=== PATIENT | male | born 1950 | race Caucasian/White ===

== ENCOUNTER 2018-12-18 11:03 | Emergency (ER) | payer BC ==
[2018-12-18 13:19] VITALS: BP 153/87
--- NOTE | 2018-12-18 13:43 | UC ---
Respiratory Complaint HPI - HPI Summary HPI Summary: Patient complaining of SOB on exertion that is now even at rest. cough, and sinus congestion for the past week or 2 - History of Current Complaint Chief Complaint: UCRespiratory Stated Complaint: COUGH,CONGESTON Time Seen by Provider: 12/18/18 13:03 Hx Obtained From: Patient Onset/Duration: Sudden Onset, Lasting Weeks - 1-2 Timing: Constant Severity Initially: Mild Severity Currently: Moderate Pain Intensity: 0 Character: Cough: Productive Aggravating Factors: Exertion, Deep Breaths, Recumbent Position Alleviating Factors: Nothing Associated Signs And Symptoms: Positive: Dyspnea, URI, Nasal Congestion, Sinus Discomfort - Allergies/Home Medications Allergies/Adverse Reactions: Allergies Allergy/AdvReac Type Severity Reaction Status Date / Time No Known Allergies Allergy Verified 12/18/18 13:09 Home Medications: Home Medications Levothyroxine TAB* [Synthroid TAB*] 75 mcg PO DAILY 12/18/18 [History Confirmed 12/18/18] PMH/Surg Hx/FS Hx/Imm Hx Previously Healthy: Yes - Surgical History Surgical History: Yes Surgery Procedure, Year, and Place: Rectal cancer surgery, Appendectomy, b/l toe surgeries 2011 - Family History Known Family History: Positive: Cardiac Disease - brother , hx of bypass for CAD, age 63 - Social History Occupation: Employed Full-time Alcohol Use: Occasionally Substance Use Type: None Smoking Status (MU): Former Smoker Type: Cigarettes Amount Used/How Often: 1 PPD Length of Time of Smoking/Using Tobacco: 4 Years Have You Smoked in the Last Year: No When Did the Patient Quit Smoking/Using Tobacco: ~1979 - Immunization History Most Recent Influenza Vaccination: July 2015 Review of Systems All Other Systems Reviewed And Are Negative: Yes Constitutional: Positive: Negative Skin: Positive: Negative Eyes: Positive: Negative ENT: Positive: Sore Throat, Nasal Discharge, Sinus Congestion Respiratory: Positive: Shortness Of Breath, Cough Cardiovascular: Positive: Negative Gastrointestinal: Positive: Negative Genitourinary: Positive: Negative Motor: Positive: Negative Neurovascular: Positive: Negative Musculoskeletal: Positive: Negative Neurological: Positive: Negative Psychological: Positive: Negative Is Patient Immunocompromised?: No Physical Exam Triage Information Reviewed: Yes Appearance: Well-Nourished, Ill-Appearing, Pain Distress Vital Signs: Initial Vital Signs Temp 97.7 F 12/18/18 13:12 Pulse 81 12/18/18 13:12 Resp 20 12/18/18 13:12 BP 153/87 12/18/18 13:12 Pulse Ox 95 12/18/18 13:12 Vital Signs Reviewed: Yes Eye Exam: Normal ENT: Positive: Pharyngeal erythema - with PND, Nasal drainage, Sinus tenderness Dental Exam: Normal Neck exam: Normal Neck: Positive: Supple, Nontender, No Lymphadenopathy Respiratory: Positive: Chest non-tender, No accessory muscle use, Respiratory distress - mild, Expiration, Inspiration Cardiovascular Exam: Normal Cardiovascular: Positive: RRR, No Murmur, Pulses Normal Abdominal Exam: Normal Abdomen Description: Positive: Nontender, No Organomegaly, Soft Bowel Sounds: Positive: Present Musculoskeletal Exam: Normal Neurological Exam: Normal Psychological Exam: Normal Skin Exam: Normal Respiratory Course/Dx - Course Course Of Treatment: hx obtained, exam performed, meds reviewed, treated for bronchitis and sinusitis - Differential Dx/Diagnosis Differential Diagnosis/HQI/PQRI: Asthma, Bronchitis, Influenza, Laryngitis, Sinusitis Provider Diagnosis: Acute bronchitis, Sinusitis Discharge - Sign-Out/Discharge Documenting (check all that apply): Patient Departure All imaging exams completed and their final reports reviewed: No Studies - Discharge Plan Condition: Stable Disposition: HOME Prescriptions: Albuterol HFA INHALER* [Ventolin HFA Inhaler*] 2 puff INH Q4H PRN #1 mdi PRN Reason: Sob/Wheezing Azithromycin TAB* [Zithromax TAB (Z-MARICRUZ) 250 mg #6 tabs] 2 tab PO .TODAY, THEN 1 DAILY #1 maricruz predniSONE [Prednisone 20 MG TAB] 40 mg PO DAILY #14 tablet Patient Education Materials: Acute Bronchitis (ED) Referrals: Ludwig Roper DO [Primary Care Provider] - Additional Instructions: 1. take the medication as prescribed. 2. Salt water gargles multiple times a day 3. Get some rest and increase fluids 4. Follow up as needed. - Billing Disposition and Condition Condition: STABLE Disposition: Home
== END 2018-12-18 13:52 | disposition home or self-care (01) ==
LOC: UCCORT 11:03
DX: J20.9 Acute bronchitis, unspecified (principal); J32.9 Chronic sinusitis, unspecified; Z87.891 Personal history of nicotine dependence
CPT/HCPCS: 99212; G0463

== ENCOUNTER 2019-07-08 07:53 | Emergency (ER) | payer BC ==
--- OUTSIDE RECORDS SUMMARY | 2019-07-08 08:03 | XMS REPORT | Continuity of Care Document ---
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 Unknown ETOH Use Occasionally consumes beer Recreational Drug Use Denies Drug Use Allergies, Adverse Reactions, Alerts Description No Known Drug Allergies Medications Active Medications SIG Qnty Indications Ordering Provider Date Lisinopril 1 by mouth 90tabs Ludwig Roper, 10/26/2018 20mg Tablets every day DO Levothyroxine Sodium Take 1 Tablet 90tabs E03.9 Ludwig Roper, 10/29/2017 75mcg Daily DO Tablets Vitamin B-6 1 by mouth Unknown Tablets every day Vitamin B12 1 by mouth Unknown Tablets every day Vitamin C 1 by mouth Unknown 500mg Tablets every day Immunizations CPT Code Status Date Vaccine Reaction Lot # [id number] Given 11/04/2018 Pneumococcal 23 Immunization [id number] Adult Or Immunosuppressed Patient 46376 Given 11/04/2018 Tdap (Boostrix)tetanus, [id number] diptheria toxoid & acellular pertussis Q2039 Given 07/27/2018 Flu Vaccine NOS GIVEN AT PHARMACY Q2039 Given 08/17/2017 Flu Vaccine NOS 07687 Given 04/14/2017 Prevnar 13 Pneumococal Pt tolerated well [id number] Conjugate Vaccine Q2035 Given 08/27/2016 Afluria Imunization Given At Pharmacy [facility] Q2037 Given 08/16/2015 Fluvirin Immunization [facility] 98377 Given 07/25/2013 Afluria Or Fluvirin Flu Vac [facility] Intramuscular 33509 Given 04/03/2013 Zoster (Zostavax) 40379 Refused 11/04/2018 Shingrix (Shingles) Zoster Vaccine will get at pharmacy HZV, Recombinant, Subunit, Adj Vital Signs Date Vital Result Comment 05/31/2019 2:50pm Body Temperature 99.4 F Weight 281.00 lb Heart Rate 98 /min BP Systolic 128 mmHg BP Diastolic 70 mmHg Respiratory Rate 18 /min Height 74.75 inches 6'2.75" O2 % BldC Oximetry 92 % BMI (Body Mass Index) 35.4 kg/m2 11/04/2018 10:04am Weight 287.00 lb Heart Rate 70 /min BP Systolic 128 mmHg BP Diastolic 80 mmHg Respiratory Rate 18 /min Height 74.75 inches 6'2.75" (10/2016) O2 % BldC Oximetry 95 % ra BMI (Body Mass Index) 36.1 kg/m2 Results Test Date Facility Test Result H/L Range Note Basic (BMP) 04/28/2019 [facility] Sodium 139 mmol/L 135-146 1 Potassium 4.8 mmol/L 3.5-5.2 Chloride# 104 mmol/L 97-110 2 Carbon Dioxide 23 mmol/L Low 24-34 Glucose 103 mg/dL 70-105 BUN 15 mg/dL 6-26 Creatinine 1.0 mg/dL 0.5-1.4 Calcium 9.5 mg/dL 8.5-10.5 3 Female Egfr 58 Low >60 4 Male Egfr 78 >60 5 Anion Gap 12 mmol/L 5-15 6 CBC with Auto Diff-fcmg 04/28/2019 [facility] WBC 5.1 K/uL 4.1-11.0 RBC 4.76 M/uL 4.60-6.10 Hemoglobin 15.3 gm/dL 13.5-18.0 Hematocrit 44.9 % 41.0-53.0 MCV 94.3 fL 80.0-97.0 MCH 32.1 pg High 27.0-32.0 MCHC 34.1 g/dL 32.0-36.0 RDW 12.8 % 11.5-14.5 PLT Count 263 K/ul 140-400 MPV 8.1 FL 7.1-10.7 Neutrophil 54.1 % 35.0-75.0 Lymphocyte 23.3 % 16.0-52.0 Monocyte 13.7 % High 2.0-10.0 Eosinophil 7.6 % High 0.0-5.0 Basophil 1.3 % 0.0-4.0 Abs Neutrophils 2.8 K/uL 2.1-8.0 Abs Lymphocytes 1.2 K/uL 0.8-5.5 Abs Monocytes 0.7 K/uL 0.1-1.0 Abs Eosinophils 0.4 K/uL 0.0-0.5 Abs Basophils 0.1 K/uL 0.0-0.3 Laboratory test finding 04/28/2019 [facility] TSH 2.21 uIU/mL 0.35-4.94 Lipid Treatment 04/28/2019 [facility] Cholesterol 135 mg/dL 50-199 Triglycerides 68 mg/dL 30-200 HDL 35 mg/dL 29-71 7 Chol/ HDL Ratio 3.9 ratio Low 4.0-6.7 VLDL 14 mg/dL 2-29 LDL (Calc) 87 mg/dL 20-99 8 Alt 46 U/L High 3-42 Ast 30 U/L 8-42 1 Updated reference range on new analyzer 2 Updated reference range on new analyzer 3 Updated reference range 02-08-2019 4 Concerning GFR Guidelines for Americans: Normal function or mild renal disease, if clinically at risk: >/= 60 mL/min Moderately decreased: 30-59 Severely decreased: 15-29 Renal failure: <15 There is reduced accuracy above 60ml/min/1.73 m squared, but the numeric value may be clinically useful in the near 60 range 5 Concerning GFR Guidelines: Normal function or mild renal disease, if clinically at risk: >/= 60 mL/min Moderately decreased: 30-59 Severely decreased: 15-29 Renal failure: <15 There is reduced accuracy above 60ml/min/1.73 m squared, but the numeric value may be clinically useful in the near 60 range Glomerular Filtration Rate (GFR) is estimated based on the CKD-EPI equation, which assumes a steady state for creatinine as recommended by the National Kidney Disease Education Program in conjunction with the National Institutes of Health and the National Kidney Foundation. Clinical conditions in which it may be necessary to measure GFR by using clearance methods include extremes of age and body size, severe malnutrition or obesity, diseases of skeletal muscle, paraplegia or quadriplegia, vegetarian diet, rapidly changing kidney function, and calculation of the dose of potentially toxic drugs that are excreted by the kidneys. 6 Updated Reference Range -2017 7 Per NCEP ATP III Guidelines: Results lower than 40 mg/dL are suggestive of increased risk for coronary artery disease. Results > or = to 60 mg/dL are considered a negative risk factor. 8 Per NCEP ATP III Guidelines: Normal Population <130 Patients with medical conditions: CHD/DM Optimal: <100 Borderline high: 130-159 High: 160-189 Very high: >189 Procedures Date Code Description Status 06/06/2018 09881699 Colonoscopy Completed 06/03/2015 75128269 Colonoscopy Completed Medical Devices Description No Information Available Encounters Description No Information Available Assessments Date Code Description Provider 05/31/2019 I10 Essential (primary) hypertension Ludwig Roper DO 05/31/2019 E03.9 Hypothyroidism, unspecified Ludwig Roper DO 05/31/2019 D01.2 Carcinoma in situ of rectum Ludwig Roper DO 05/31/2019 E66.9 Obesity, unspecified Ludwig Roper DO 05/31/2019 R53.83 Other fatigue Ludwig Roper DO 05/31/2019 R05 Cough Ludwig Roper DO 05/31/2019 Z68.35 Body mass index (BMI) 35.0-35.9, adult Ludwig Roper DO 04/28/2019 I10 Essential (primary) hypertension Ludwig Roper DO 04/28/2019 I10 Essential (primary) hypertension Schedule, Laboratory 04/28/2019 I10 Ess[facility] of Treatment Future Appointment(s):11/24/2019 9:55 am - Schedule, Laboratory at [facility]2019 1:00 pm - Ludwig Roper DO at [facility]05/31/2019 - Ludwig Roper DOI10 Essential (primary) hypertensionNew Labs:Basic (BMP), Scheduled: 11/24/19CBC with Auto Diff-fcmg, Scheduled: 11/24/19TSH, Scheduled: 11/24/19Lipid Treatment , Scheduled: 11/24/19Comments:Today, the patient's BP is at 128/70-The patient was advised to continue with current line of therapies which include Lisinopril 20 mg.-The patient will benefit from maintaining a low sodium diet.-The patient was encouraged to monitor his BP periodically at home and maintain a log of the same to bringalong during his next visit for comparison.-The patient was advised to participate in activities that lower blood pressure and cardiac load. We will continue to monitor.Follow up:Schedule an x-ray today. Blood work in 6 months and will follow up with me a couple of days later.E03.9 Hypothyroidism, jufgzahdyldO93.2 Carcinoma in situ of xluorcS41.9 Obesity, unspecifiedComments:The patient had lost around 6lbs of body weight since the previous visit and he currently weighs around 281lbs. A detailed discussion was had with the patient regarding his body weight and BMI. He was made aware about the health hazards of obesity including diabetes, hypertension, cardiac diseases, and other various risk factors. He was advised to maintain a healthy and low-calorie diet and a regular exercise regimen which will help him lose weight.R53.83 Other fatigueComments:May be secondary to his URI symptoms and sleeping difficulty. Discussed different treatment options.1. We will obtain x- rays for further management of the symptoms.2. We will await for the x-rays results and would send in antibiotics after reviewing the x-ray results.3. Advised the patient to call orcome back to the clinic if the symptoms continue to persist or worsen.R05 CoughNew Xrays:Chest Xray, 2 Views, Ordered: Comments:Reviewed the condition with the patient. Discussed different treatment options.1. We will obtain x-rays for further management of the symptoms.2. We will await for the x-rays results and would send inantibiotics after reviewing the x-ray results.3. Advised the patient to call or come back to the clinic if the symptoms continue to persist or worsen.Z68.35 Body mass index (BMI) 35.0-35.9, adultComments:The patient's BMI is at 35.4. The patient was strongly encouraged to lose weight with low-calorie diet and exercises. We will continue to monitor his weight and BMI periodically. Functional Status Description No Information Available Mental Status Description No Information Available Referrals Description No Information Available
--- OUTSIDE RECORDS SUMMARY | 2019-07-08 08:03 | XMS REPORT | Continuity of Care Document ---
:1950 External Reference #:[id number] Author Name Vasu Santoro MD Address [address] [place] [address] Care Team Providers Name Role Phone Ludwig Roper DO - Family Medicine Care Team Information Copy Room Technician [phone] Problems Active Problems Provider Date Benign essential hypertension Onset: 03/05/2016 Social History Type Date Description Comments Sex Unknown ETOH Use Currently consumes alcohol socially Tobacco Use Start: Unknown Patient denies history of smoking Smoking Status Reviewed: 06/13/19 Patient denies history of smoking Allergies, Adverse Reactions, Alerts Description No Known Drug Allergies Medications Active Medications SIG Qnty Indications Ordering Date Provider Fluorometholone please apply 1 5ml H04.123 Vasu Santoro, 06/10/2018 0.1% drop to both MD Suspension eyes 2 times daily for 2 weeks Restasis 1 drop both 180units H04.123 Vasu Santoro, 06/10/2018 0.05% Emulsion eyes twice MD daily. please dispense 180 vials, which is 3 month supply Lisinopril 1 by mouth Unknown 10mg Tablets every day Vitamin B-6 1 by mouth once Unknown 100mg Tablets a day Vitamin C 1 by mouth Unknown 1000mg Tablets every day Vitamin B-12 1 by mouth Unknown 1000mcg every day Tablets Sub Immunizations Description No Information Available Vital Signs Description No Information Available Results Description No Information Available Procedures Date Code Description Status 06/13/2019 36380 Eye Exam Est Patient Comprehensive Completed Medical Devices Description No Information Available Encounters Description No Information Available Assessments Date Code Description Provider 06/13/2019 B39.9 Histoplasmosis, unspecified Vasu Santoro MD 06/13/2019 H04.123 Dry eye syndrome of bilateral lacrimal glands Vasu Santoro MD 06/13/2019 Z96.1 Presence of intraocular lens Vasu Santoro MD Plan of Treatment Future Appointment(s):06/14/2020 9:45 am - Vasu [facility]oro MD at [facility] 03/2019 - Vasu Santoro MDB39.9 Histoplasmosis, unspecifiedComments:- 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
[2019-07-08 08:11] VITALS: BP 141/75
--- NOTE | 2019-07-08 08:28 | UC ---
Respiratory Complaint HPI - HPI Summary HPI Summary: 69 year old male presents with complaint of a productive cough, progressive over the past 2 months. Denies associated fever, chills nor night sweats. No chest pain nor sob. He works as a beauty school instructor. States he was treated for bronchitis by his PCP, he thinks about 2 months ago with Amoxicillin. He had a CXR at the time that he states was "normal". Initially felt better with treatment then sx have gradually returned. - History of Current Complaint Chief Complaint: UCGeneralIllness Stated Complaint: COUGH CONGESTION Time Seen by Provider: 07/08/19 08:27 Hx Obtained From: Patient Onset/Duration: Gradual Onset, Lasting Weeks Pain Intensity: 0 Character: Cough: Productive Aggravating Factors: Nothing Alleviating Factors: Other - when he was treated with Amoxicillin. Associated Signs And Symptoms: Positive: Wheezing, URI. Negative: Dyspnea, Fever, Chills, Pleuritic Chest Pain, Hemoptysis, Dizziness, Calf Pain, Nasal Congestion, Sinus Discomfort - Allergies/Home Medications Allergies/Adverse Reactions: Allergies Allergy/AdvReac Type Severity Reaction Status Date / Time No Known Allergies Allergy Verified 07/08/19 08:11 PMH/Surg Hx/FS Hx/Imm Hx Previously Healthy: Yes Endocrine History: Hypothyroidism Cardiovascular History: Hypertension Respiratory History: Bronchitis GI/ History: Other - Rectal cancer 9 years ago. In remission. - Surgical History Surgical History: Yes Surgery Procedure, Year, and Place: Rectal cancer surgery, Appendectomy, b/l toe surgeries 2011 - Family History Known Family History: Positive: Cardiac Disease - brother , hx of bypass for CAD, age 63 - Social History Alcohol Use: Occasionally Substance Use Type: None Smoking Status (MU): Former Smoker Type: Cigarettes Amount Used/How Often: 1 PPD Length of Time of Smoking/Using Tobacco: 4 Years Have You Smoked in the Last Year: No When Did the Patient Quit Smoking/Using Tobacco: ~1979 - Immunization History Most Recent Influenza Vaccination: July 2015 Review of Systems All Other Systems Reviewed And Are Negative: Yes Constitutional: Negative: Fever, Chills, Fatigue Skin: Negative: Rash Eyes: Negative: Blurred Vision Respiratory: Positive: Cough - productive. Negative: Shortness Of Breath Cardiovascular: Negative: Palpitations, Chest Pain Gastrointestinal: Negative: Abdominal Pain, Vomiting, Diarrhea, Nausea Motor: Negative: Weakness Neurovascular: Positive: Negative Musculoskeletal: Positive: Negative Neurological: Negative: Headache, Weakness, Paresthesia, Numbness Psychological: Positive: Negative Is Patient Immunocompromised?: No Physical Exam Triage Information Reviewed: Yes Appearance: Well-Appearing, Well-Nourished Vital Signs: Initial Vital Signs Temp 98.1 F 07/08/19 08:08 Pulse 78 07/08/19 08:08 Resp 18 07/08/19 08:08 BP 141/75 07/08/19 08:08 Pulse Ox 97 07/08/19 08:08 Vital Signs Reviewed: Yes Eyes: Positive: Conjunctiva Clear ENT: Positive: Normal ENT inspection Neck: Positive: Supple, Nontender, No Lymphadenopathy Respiratory: Positive: No respiratory distress, Wheezing - bilateral expiratory. Negative: Decreased breath sounds, Crackles, Rhonchi, Stridor Cardiovascular: Positive: RRR, No Murmur, Pulses Normal Abdomen Description: Positive: Nontender, Soft Musculoskeletal Exam: Normal Neurological Exam: Normal Psychological Exam: Normal Skin Exam: Normal Respiratory Course/Dx - Differential Dx/Diagnosis Differential Diagnosis/HQI/PQRI: Asthma Provider Diagnosis: Bronchitis Discharge ED - Sign-Out/Discharge Documenting (check all that apply): Patient Departure All imaging exams completed and their final reports reviewed: No Studies - Discharge Plan Condition: Stable Disposition: HOME Prescriptions: Albuterol HFA INHALER* [Ventolin HFA Inhaler*] 2 puff INH Q6H PRN #1 mdi PRN Reason: Wheezing DOXYcycline CAP(*) [DOXYcycline 100MG CAP(*)] 100 mg PO BID 10 Days #20 cap Patient Education Materials: Acute Bronchitis (ED) Referrals: Ludwig Roper DO [Primary Care Provider] - Additional Instructions: Take the antibiotics and inhaler as prescribed. If symptoms persist or worsen, follow-up with your primary care physician. - Billing Disposition and Condition Condition: STABLE Disposition: Home
== END 2019-07-08 08:52 | disposition home or self-care (01) ==
LOC: UCCORT 07:53
DX: J40 Bronchitis, not specified as acute or chronic (principal); Z87.891 Personal history of nicotine dependence; Z85.048 Personal history of other malignant neoplasm of rectum, rectosigmoid junction, and anus
CPT/HCPCS: 99212; G0463

== ENCOUNTER 2019-08-04 11:33 | Emergency (ER) | payer BC ==
[2019-08-04 11:46] VITALS: BP 154/81
--- NOTE | 2019-08-04 12:15 | UC ---
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 for 10 days. Previous chest xray for cough several months ago reported as normal. Feels run down, but not dyspneic, no night sweats or weight loss. Denies reflux and allergies, and does not have a dx of sleep apnea. Stopped smoking 40 years ago. - History of Current Complaint Chief Complaint: UCGeneralIllness Stated Complaint: RECHECK-UPPER RESPIRATORY INFECTION Time Seen by Provider: 08/04/19 12:05 Hx Obtained From: Patient Onset/Duration: Gradual Onset, Lasting Weeks Timing: Intermittent Episodes Severity Initially: Mild Severity Currently: Moderate Pain Intensity: 0 Character: Cough: Productive Aggravating Factors: Exertion, Recumbent Position Alleviating Factors: Bronchodilator - using ventolin twice daily, Upright Position Associated Signs And Symptoms: Positive: Dyspnea, Nasal Congestion, Hoarseness - Risk Factors Pulmonary Embolism Risk Factors: Negative Cardiac Risk Factors: Negative Pseudomonas Risk Factors: Negative Tuberculosis Risk Factors: Negative - Allergies/Home Medications Allergies/Adverse Reactions: Allergies Allergy/AdvReac Type Severity Reaction Status Date / Time No Known Allergies Allergy Verified 08/04/19 11:46 PMH/Surg Hx/FS Hx/Imm Hx Previously Healthy: Yes - high weight Endocrine History: Hypothyroidism Cardiovascular History: Hypertension - Surgical History Surgical History: Yes Surgery Procedure, Year, and Place: Rectal cancer surgery, Appendectomy, b/l toe surgeries 2011, cataracts - Family History Known Family History: Positive: Cardiac Disease - brother , hx of bypass for CAD, age 63, Respiratory Disease - father had COPD - Social History Occupation: Employed Full-time Alcohol Use: Occasionally Substance Use Type: None Smoking Status (MU): Former Smoker Type: Cigarettes Amount Used/How Often: 1 PPD Length of Time of Smoking/Using Tobacco: 4 Years Have You Smoked in the Last Year: No When Did the Patient Quit Smoking/Using Tobacco: ~1980 - Immunization History Most Recent Influenza Vaccination: July 2015 Review of Systems All Other Systems Reviewed And Are Negative: Yes Constitutional: Positive: Fatigue Skin: Positive: Negative Eyes: Positive: Negative ENT: Positive: Negative Respiratory: Positive: Shortness Of Breath, Cough Cardiovascular: Negative: Palpitations, Chest Pain Gastrointestinal: Positive: Negative Genitourinary: Positive: Negative Motor: Positive: Negative Neurovascular: Positive: Negative Musculoskeletal: Positive: Negative Neurological: Positive: Negative Psychological: Positive: Negative Is Patient Immunocompromised?: No Physical Exam Triage Information Reviewed: Yes Appearance: Well-Appearing, No Pain Distress, Obese Vital Signs: Initial Vital Signs Temp 99.5 F 08/04/19 11:41 Pulse 88 08/04/19 11:41 Resp 18 08/04/19 11:41 BP 154/81 08/04/19 11:41 Pulse Ox 94 08/04/19 11:41 Eyes: Positive: Conjunctiva Clear ENT: Positive: Pharynx normal, TMs normal Neck: Positive: Supple, Nontender, No Lymphadenopathy Respiratory: Positive: Lungs clear, Decreased breath sounds - mild decrease to both bases. Cardiovascular: Positive: RRR, No Murmur Abdomen Description: Positive: Nontender, No Organomegaly, Soft Musculoskeletal Exam: Normal Neurological Exam: Normal Psychological Exam: Normal Skin Exam: Normal Diagnostics - Radiology No standard instances Radiology Interpretation Completed By: Radiologist Summary of Radiographic Findings: Chest xray shows hyperinflamtion, consistent with COPD, no acute disease per Dr. Brown. Respiratory Course/Dx - Course Course Of Treatment: reviewed chronic cough, no evidence of pneumonia, some suggestion of COPD --could be related to Amanda; notably he was off lisinopril and was started on it again ? months ago. --no indication for further antibiotic tx. --discussed and he will follow up with Dr. Roper for work up of chronic cough and consideration of change of lisinopril. - Differential Dx/Diagnosis Provider Diagnosis: Chronic cough Discharge ED - Sign-Out/Discharge Documenting (check all that apply): Patient Departure All imaging exams completed and their final reports reviewed: Yes - Discharge Plan Condition: Stable Disposition: HOME Patient Education Materials: Chronic Cough (ED) Referrals: Ludwig Roper DO [Primary Care Provider] - Additional Instructions: As discussed, this chronic cough is not likely to respond to further treatment with antibiotics. The cough could be related to, or worsened, by lisinoptil. At this time, you will contact Dr. Roper about follow up and further testing of chronic cough. - Billing Disposition and Condition Condition: STABLE Disposition: Home
== END 2019-08-04 12:55 | disposition home or self-care (01) ==
LOC: UCCORT 11:33
DX: R05 Cough (principal); I10 Essential (primary) hypertension; R53.83 Other fatigue; R06.02 Shortness of breath; R91.8 Other nonspecific abnormal finding of lung field; R06.09 Other forms of dyspnea; R09.81 Nasal congestion; R49.0 Dysphonia; Z87.891 Personal history of nicotine dependence
CPT/HCPCS: 71046; 99211; G0463